=== PATIENT | female | born 1995 | race Caucasian/White ===

== ENCOUNTER 2023-03-31 18:50 | Inpatient (IN) | payer MEDICAID, SELFPAY ==
--- NOTE | 2023-03-31 20:10 | PC.NURSE ---
Pt arrived from [facility] via EMS at approximatley 1850, pt was cooperative w/assessment. However she is extremely agitated regarding getting admitted because her mother doesn't want her to be happy.
[2023-03-31 22:00] VITALS: BP 104/49; PULSE 62; RESP 15; TEMP 36.2; O2SAT 98
[2023-04-01 06:00] VITALS: BP 113/77; PULSE 114; RESP 17; TEMP 36.3; O2SAT 97
[2023-04-01] MEDS: acetaminophen 325 mg Tablet 650 MG PO ×2 (06:47→18:45)
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
--- NOTE | 2023-04-01 08:29 | PC.NURSE ---
During morning assessment, patient stated I'm okay . Patient rates anxiety 5/10 because her mother wrote an affidavit to have her placed in the unit, per patient. When asked about depression, patient stated hell no . Patient denies SI, HI, AVH.
[2023-04-01] MEDS: flu vacc pf 2023-24 (6 mos+) 60 MCG IM (08:49)
[2023-04-01 14:00] VITALS: BP 125/85; PULSE 81; RESP 17; TEMP 36.5; O2SAT 98
[2023-04-01] MEDS: OLANZapine 5 mg ODT PO (15:04)
--- NOTE | 2023-04-01 15:04 | PC.NURSE ---
patient angry at cousin. Patient wanting to punch something because cousin is saying she is creating a satanic [place]at[place]. Administered 5mg ODT.
[2023-04-01] MEDS: nicotine 2 mg Gum BUCCAL (15:14)
[2023-04-01 20:17] VITALS: BP 95/61; PULSE 71; RESP 16; TEMP 36.8; O2SAT 97
[2023-04-02 05:19] VITALS: BP 115/79; PULSE 71; RESP 16; TEMP 36.6; O2SAT 98
[2023-04-02 14:00] VITALS: BP 124/73; PULSE 69; RESP 16; TEMP 36.6; O2SAT 99
--- NOTE | 2023-04-02 19:20 | W.PM.NPUPNS ---
Subjective NPU Subjective: Patient presented today reporting that she is wanting to leave. We discussed the challenges and concerns that her parents raised about her behaviors of taking her belongings out to the front yard and behaving in strange ways and she got very angry about how nobody wants her to be happy. We discussed having a family meeting in the morning to talk about these concerns so that there is and that he said she said situation. She was open to that but continues to be focused on discharge and feeling she does not need medications. Mental Status Exam MSE Comments: This is an overweight versus obese -Citizen [place] female, in hospital scrubs, with adequate grooming and eye contact. Hair is shaved off with no abnormal movements, except for mild psychomotor retardation. Cooperative with exam in mild distress. Speech was normal rate and volume. Mood described as alright; affect congruent. Thought process, organized. Thought content: patient denied any suicidal or homicidal ideation, there were no delusions reported or noted, patient denied any auditory or visual hallucinations. Attention, concentration, and memory appeared intact, but none were formally tested. Alert and oriented times three. Insight and judgment appear limited. Impulse control is limited. Vitals/I&O/Wt Last Vital Signs Temp 97.4 F L 04/02/23 19:54 Pulse 79 04/02/23 19:54 Resp 16 04/02/23 19:54 BP 115/77 04/02/23 19:54 Pulse Ox 98 04/02/23 19:54 O2 Del Method Room Air 04/02/23 19:54 A&P Assessment and plan (1) Parent-child relational problem: (2) Adjustment disorder with mixed disturbance of emotions and conduct: (3) Major depressive disorder, recurrent: Plan This is a 27-year-old -Citizen [place] female with a long history of mental health issues who had a recent inpatient hospitalization reported but its unclear the exact time this occurred in [place] who presents on a 96-hour hold secondary to reports of odd behavior reporting that nothing is wrong with her and desiring discharge as soon as possible. 1.? Encourage individual, group, and milieu therapy. 2.? Continue q-15-minute checks for safety. 3. We will evaluate for any need for medication. 4. Obtain collateral information regarding symptom pattern. 5. Attempt to have a virtual family session to understand the logistics of her being able to return home and family concerns about her odd behavior and try to figure out what medications she has been on before and if she might consider restarting them. Involuntary Hold Information 96 Hour Hold: 96 Hour Involuntary Admission: No Attestations NPU Medical Necessity Statement*: Inpatient hospitalization is medically necessary and the clinically appropriate intervention, at this time. We will monitor medications and make changes as indicated. Likely length of stay is 2-4 days. Coding Level of Care Code Acute Code for Chg Fwd Diagnoses Parent-child relational problem Z62.820 Adjustment disorder with mixed disturbance of emotions and conduct F43.25 Major depressive disorder, recurrent F33.9
[2023-04-02 19:54] VITALS: BP 115/77; PULSE 79; RESP 16; TEMP 36.3; O2SAT 98
[2023-04-03 06:00] VITALS: BP 139/97; PULSE 60; RESP 16; TEMP 36.6; O2SAT 99
[2023-04-03 14:00] VITALS: BP 107/74; PULSE 74; RESP 16; TEMP 36.8; O2SAT 100
--- NOTE | 2023-04-03 17:31 | W.PM.NPUPNS ---
Subjective NPU Subjective: Patient presented today reporting that she had a rough conversation with her mother in the family meeting. She reports being able to consider the idea of going and staying with her aunt and that she has been made aware of the job [employer] and she is exploring whether that might be a good idea for her. We discussed working on safe transition to her aunt's place with discharge possibly at the beginning of the week. Mental Status Exam MSE Comments: This is an overweight versus obese -Qat[place] female, in hospital scrubs, with adequate grooming and eye contact. Hair is shaved off with no abnormal movements, except for mild psychomotor retardation. Cooperative with exam in mild distress. Speech was normal rate and volume. Mood described as alright; affect congruent. Thought process, organized. Thought content: patient denied any suicidal or homicidal ideation, there were no delusions reported or noted, patient denied any auditory or visual hallucinations. Attention, concentration, and memory appeared intact, but none were formally tested. Alert and oriented times three. Insight and judgment appear limited. Impulse control is limited. Vitals/I&O/Wt Last Vital Signs Temp 98.2 F 04/03/23 14:00 Pulse 74 04/03/23 14:00 Resp 16 04/03/23 14:00 BP 107/74 04/03/23 14:00 Pulse Ox 100 04/03/23 14:00 O2 Del Method Room Air 04/03/23 14:00 A&P Assessment and plan (1) History of autism: (2) Major depressive disorder, recurrent: (3) Adjustment disorder with mixed disturbance of emotions and conduct: (4) Parent-child relational problem: Plan This is a 27-year-old -Qat[place] female with a long history of mental health issues who had a recent inpatient hospitalization reported but its unclear the exact time this occurred in [place] who presents on a 96-hour hold secondary to reports of odd behavior reporting that nothing is wrong with her and desiring discharge as soon as possible. 1.? Encourage individual, group, and milieu therapy. 2.? Continue q-15-minute checks for safety. 3. We will evaluate for any need for medication. 4. Obtain collateral information regarding symptom pattern. 5. Virtual family meeting went well as could be expected with conflict between mom and patient. Working on arrangements to have her discharge and live with her aunt. Patient was somewhat more able to discuss her challenges. Involuntary Hold Information 96 Hour Hold: 96 Hour Involuntary Admission: No Attestations NPU Medical Necessity Statement*: Inpatient hospitalization is medically necessary and the clinically appropriate intervention, at this time. We will monitor medications and make changes as indicated. Likely length of stay is 2-4 days. Coding Level of Care Code Acute Code for Chg Fwd Diagnoses History of autism Z86.59 Major depressive disorder, recurrent F33.9 Adjustment disorder with mixed disturbance of emotions and conduct F43.25 Parent-child relational problem Z62.820
[2023-04-03 20:05] VITALS: BP 149/87; PULSE 70; RESP 18; TEMP 36.5; O2SAT 98
[2023-04-03] MEDS: trazodone 50 mg Tablet PO (20:32)
[2023-04-03] MEDS: OLANZapine 5 mg ODT PO (23:11)
[2023-04-04 06:00] VITALS: BP 98/77; PULSE 87; RESP 18; TEMP 36.7; O2SAT 98
[2023-04-04] MEDS: nicotine 21 mg Patch 1 PATCH TRANSDERMA (07:37)
--- NOTE | 2023-04-04 08:02 | P.NPUPN_ITS ---
Subjective NPU Subjective: Patient presented today reporting that she is feeling okay. She is looking into job [employer] and considering other options. She is having better self-control per staff and direct evaluation. We discussed the likelihood of discharge at the beginning of the week. Mental Status Exam MSE Comments: This is an overweight versus obese -[place] female, in hospital scrubs, with adequate grooming and eye contact. Hair is shaved off with no abnormal movements, except for mild psychomotor retardation. Cooperative with exam in mild distress. Speech was normal rate and volume. Mood described as alright; affect congruent. Thought process, organized. Thought content: patient denied any suicidal or homicidal ideation, there were no delusions reported or noted, patient denied any auditory or visual hallucinations. Attention, concentration, and memory appeared intact, but none were formally tested. Alert and oriented times three. Insight and judgment appear limited. Impulse control is limited. Vitals/I&O/Wt Last Vital Signs Temp 98.0 F 04/04/23 06:00 Pulse 87 04/04/23 06:00 Resp 18 04/04/23 06:00 BP 98/77 04/04/23 06:00 Pulse Ox 98 04/04/23 06:00 O2 Del Method Room Air 04/03/23 20:05 A&P Assessment and plan (1) History of autism: (2) Major depressive disorder, recurrent: (3) Adjustment disorder with mixed disturbance of emotions and conduct: (4) Parent-child relational problem: Plan This is a 27-year-old -[place] female with a long history of mental health issues who had a recent inpatient hospitalization reported but its unclear the exact time this occurred in [place] who presents on a 96-hour hold secondary to reports of odd behavior reporting that nothing is wrong with her and desiring discharge as soon as possible. 1.? Encourage individual, group, and milieu therapy. 2.? Continue q-15-minute checks for safety. 3. We will evaluate for any need for medication. 4. Obtain collateral information regarding symptom pattern. 5. Virtual family meeting went well as could be expected with conflict between mom and patient. Working on arrangements to have her discharge and live with her aunt. Patient was somewhat more able to discuss her challenges. Involuntary Hold Information 96 Hour Hold: 96 Hour Involuntary Admission: No Attestations NPU Medical Necessity Statement*: Inpatient hospitalization is medically necessary and the clinically appropriate intervention, at this time. We will monitor medications and make changes as indicated. Likely length of stay is 2-4 days. Coding Level of Care Code Acute Code for Chg Fwd Diagnoses History of autism Z86.59 Major depressive disorder, recurrent F33.9 Adjustment disorder with mixed disturbance of emotions and conduct F43.25 Parent-child relational problem Z62.820
[2023-04-04 14:00] VITALS: BP 114/79; PULSE 94; RESP 16; TEMP 36.9; O2SAT 100
[2023-04-04 20:29] VITALS: BP 117/80; PULSE 76; RESP 17; TEMP 36.5; O2SAT 99
[2023-04-04] MEDS: trazodone 50 mg Tablet PO (20:38)
[2023-04-05 06:00] VITALS: BP 117/81; PULSE 70; RESP 16; TEMP 36.5; O2SAT 99; BMI 31.6
--- NOTE | 2023-04-05 08:52 | P.NPUPN_ITS ---
Subjective NPU Subjective: Patient presented today reporting that she is doing okay. She is still focused on her connecting with a [employer]. We discussed making sure she knows numbers and working with the social work team to plan on discharge to her aunts house in the next 48 hours. Mental Status Exam MSE Comments: This is an overweight versus obese -Mongolian female, in hospital scrubs, with adequate grooming and eye contact. Hair is shaved off with no abnormal movements, except for mild psychomotor retardation. Cooperative with exam in mild distress. Speech was normal rate and volume. Mood described as alright; affect congruent. Thought process, organized. Thought content: patient denied any suicidal or homicidal ideation, there were no delusions reported or noted, patient denied any auditory or visual hallucinations. Attention, concentration, and memory appeared intact, but none were formally tested. Alert and oriented times three. Insight and judgment appear limited. Impulse control is limited. Vitals/I&O/Wt Last Vital Signs Temp 97.7 F 04/05/23 06:00 Pulse 70 04/05/23 06:00 Resp 16 04/05/23 06:00 BP 117/81 04/05/23 06:00 Pulse Ox 99 04/05/23 06:00 O2 Del Method Room Air 04/05/23 06:00 Weight last 48 hrs Weight 83.574 kg A&P Assessment and plan (1) History of autism: (2) Major depressive disorder, recurrent: (3) Adjustment disorder with mixed disturbance of emotions and conduct: (4) Parent-child relational problem: Plan This is a 27-year-old -Mongolian female with a long history of mental health issues who had a recent inpatient hospitalization reported but its unclear the exact time this occurred in [place] who presents on a 96-hour hold secondary to reports of odd behavior reporting that nothing is wrong with her and desiring discharge as soon as possible. 1.? Encourage individual, group, and milieu therapy. 2.? Continue q-15-minute checks for safety. 3. We will evaluate for any need for medication. 4. Obtain collateral information regarding symptom pattern. 5. Virtual family meeting went well as could be expected with conflict between mom and patient. Working on arrangements to have her discharge and live with her aunt. Patient was somewhat more able to discuss her challenges. Involuntary Hold Information 96 Hour Hold: 96 Hour Involuntary Admission: No Attestations NPU Medical Necessity Statement*: Inpatient hospitalization is medically necessary and the clinically appropriate intervention, at this time. We will monitor medications and make changes as indicated. Likely length of stay is 1-3 days. Coding Level of Care Code Acute Code for Chg Fwd Diagnoses History of autism Z86.59 Major depressive disorder, recurrent F33.9 Adjustment disorder with mixed disturbance of emotions and conduct F43.25 Parent-child relational problem Z62.820
[2023-04-05 14:00] VITALS: BP 113/73; PULSE 90; RESP 15; TEMP 36.8; O2SAT 98
[2023-04-05] MEDS: trazodone 50 mg Tablet PO (19:56)
[2023-04-05 20:58] VITALS: BP 110/72; PULSE 72; RESP 17; TEMP 36.4; O2SAT 98
[2023-04-06 06:00] VITALS: BP 116/84; PULSE 78; RESP 16; TEMP 36.4; O2SAT 98
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
[2023-04-06 12:45] VITALS: BP 116/84; PULSE 78; RESP 16; TEMP 36.4; O2SAT 98
[2023-04-06 13:31] VITALS: BP 107/66; PULSE 71; RESP 15; TEMP 36.6; O2SAT 100
== END 2023-04-06 15:36 | disposition home or self-care (01) | DRG 882 ==
PROVIDERS: Admitting Provider Psychiatry & Neurology Psychiatry; Visit Provider Psychiatry & Neurology Psychiatry
DX: F43.25 Adjustment disorder with mixed disturbance of emotions and conduct (principal); R45.851 Suicidal ideations; F12.90 Cannabis use, unspecified, uncomplicated; F17.290 Nicotine dependence, other tobacco product, uncomplicated; Z81.4 Family history of other substance abuse and dependence; Z81.8 Family history of other mental and behavioral disorders; Z62.810 Personal history of physical and sexual abuse in childhood; Z62.811 Personal history of psychological abuse in childhood; Z62.812 Personal history of neglect in childhood; Z62.820 Parent-biological child conflict
CPT/HCPCS: 90471; 90686; 97150; 97165